=== PATIENT | female | born 1985 | race Caucasian/White ===

== ENCOUNTER 2018-01-12 09:42 | Emergency (ER) | payer MEDICAID ==
[~2018-01-12] VITALS: Ht 165.1 cm; Wt 84.8 kg
[2018-01-12 09:47] VITALS: Ht 165.1 cm; Wt 84.8 kg
[2018-01-12] MEDS ORDERED: KEPPRA250 M1 (09:58)
[2018-01-12] MEDS ORDERED: TRAZODONE50 M1 (09:59)
[2018-01-12] MEDS ORDERED: CYCLOBENZAPRINE10 MG (09:59)
[2018-01-12] MEDS ORDERED: PAXIL10 MG (09:59)
[2018-01-12] MEDS ORDERED: CLONIDINE0.2 M1 (10:00)
[2018-01-12] MEDS ORDERED: RENVELA800 M1 (10:00)
[2018-01-12] MEDS ORDERED: LOMOTIL1 TAB (10:00)
[2018-01-12] MEDS ORDERED: HYDRALAZINE HCL25 MG (10:00)
[2018-01-12] MEDS ORDERED: NOR10 (10:01)
[2018-01-12 10:19] LABS: BASOPHIL % 0.6 % (0-2); PLATELET COUNT 286 x10^3mcL (130-400); RED CELL DISTRIBUTION WIDTH 12.7 % (11.5-14.5)
[2018-01-12 10:20] LABS: CALCIUM 9.1 mg/dL (8.5-10.1); CARBON DIOXIDE 30.2 mmol/L (21-32); CHLORIDE SERUM 102 mmol/L (98-107); CREATININE SERUM 0.5 mg/dL (0.6-1.0); GFR1 > 60 mL/min; GLUCOSE SERUM 79 mg/dL (74-106); POTASSIUM SERUM 4.7 mmol/L (3.5-5.1); SODIUM SERUM 138 mmol/L (136-145)
[2018-01-12 10:26] LABS: ALBUMIN 3.9 g/dL (3.4-5.0); ALKALINE PHOSPHATASE 67 U/L (46-116); ALT/SGPT 61 U/L (14-59); AST/SGOT 29 U/L (15-37); BILIRUBIN TOTAL 0.5 mg/dL (0.20-1.00); CHOLESTEROL 203 mg/dL (<200); HDL CHOLESTEROL 78 mg/dL (40-60); PHOSPHOROUS 3.2 mg/dL (2.5-4.9); TOTAL PROTEIN, SERUM 8.1 g/dL (6.4-8.2)
[2018-01-12 10:54] VITALS: BP 100/55
== END 2018-01-12 10:55 | disposition home or self-care (01) ==
LOC: ED 09:42
PROVIDERS: Emergency Medicine
DX: R07.89 Other chest pain (principal)
CPT/HCPCS: 36415; Q0092